=== PATIENT | female | born 1950 | race Caucasian/White ===

== ENCOUNTER → 2017-07-19 | Outpatient (REF) | payer MEDICARE ==
[2017-07-19 12:32] LABS: MEAN CORPUSCULAR HGB CONC 31.3 g/dl (32.0-36.5); MEAN CORPUSCULAR VOLUME 86.5 fl (80.0-96.0); RED CELL DISTRIBUTION WIDTH 14.2 % (11.5-14.5)
[2017-07-19 13:03] LABS: ALBUMIN/GLOBULIN RATIO 1.14 (1.00-1.93); ALKALINE PHOSPHATASE 109 U/L (45-117); ALT/SGPT 24 U/L (12-78); ANION GAP 9 MEQ/L (8-16); AST/SGOT 14 U/L (15-37); BILIRUBIN,TOTAL 0.3 MG/DL (0.2-1.0); BLOOD UREA NITROGEN 18 MG/DL (7-18); CALCIUM LEVEL 10.3 MG/DL (8.8-10.2); CARBON DIOXIDE LEVEL 30 MEQ/L (21-32); CHLORIDE LEVEL 103 MEQ/L (98-107); CREATININE FOR GFR 0.73 MG/DL (0.55-1.02); GLOMERULAR FILTRATION RATE > 60.0 (>45); GLUCOSE, FASTING 95 MG/DL (80-110); SODIUM LEVEL 142 MEQ/L (136-145); TOTAL PROTEIN 7.5 GM/DL (6.4-8.2)
[2017-07-19 13:08] LABS: POTASSIUM SERUM 5.3 MEQ/L (3.5-5.1)
== END ==
LOC: M SFHCADAM 09:26
PROVIDERS: ATTEND Physician Assistant
DX: R07.89 Other chest pain (principal); R00.2 Palpitations; F41.9 Anxiety disorder, unspecified
CPT/HCPCS: 80053; 84439; 84443; 85027; 93005; G0463

== ENCOUNTER → 2017-11-04 | Outpatient (CLI) | payer MEDICARE | LOC: M WHC 10:38 | DX: Z12.31 Encounter for screening mammogram for malignant neoplasm of breast (principal); Z78.0 Asymptomatic menopausal state; Z92.0 Personal history of contraception | CPT/HCPCS: G0202 ==

== ENCOUNTER → 2017-11-11 | Outpatient (REF) | payer MEDICARE ==
[2017-11-11 12:35] LABS: ALBUMIN 3.7 GM/DL (3.2-5.2); ALBUMIN/GLOBULIN RATIO 1.03 (1.00-1.93); ALKALINE PHOSPHATASE 114 U/L (45-117); ALT/SGPT 20 U/L (12-78); ANION GAP 4 MEQ/L (8-16); AST/SGOT 18 U/L (7-37); BILIRUBIN,TOTAL 0.4 MG/DL (0.2-1.0); BLOOD UREA NITROGEN 25 MG/DL (7-18); CALCIUM LEVEL 9.4 MG/DL (8.8-10.2); CARBON DIOXIDE LEVEL 31 MEQ/L (21-32); CHLORIDE LEVEL 104 MEQ/L (98-107); CREATININE FOR GFR 0.68 MG/DL (0.55-1.02); GLOMERULAR FILTRATION RATE > 60.0 (>45); GLUCOSE, FASTING 107 MG/DL (80-110); POTASSIUM SERUM 4.3 MEQ/L (3.5-5.1); SODIUM LEVEL 139 MEQ/L (136-145); TOTAL PROTEIN 7.3 GM/DL (6.4-8.2)
== END ==
LOC: M SFHCADAM 09:46
DX: E83.52 Hypercalcemia (principal); Z23 Encounter for immunization
CPT/HCPCS: 80053

== ENCOUNTER → 2018-04-06 | Outpatient (REF) | payer MEDICARE, OTHER ==
[2018-04-09 00:06] LABS: Lyme Disease IgG/IgM Antibodie <0.91 ISR (0.00-0.90); Lyme Disease IgM Ab Quantitati <0.80 index (0.00-0.79)
== END ==
LOC: M SFHCADAM 16:22
DX: R21 Rash and other nonspecific skin eruption (principal)
CPT/HCPCS: 86617

== ENCOUNTER → 2018-11-21 | Outpatient (REF) | payer MEDICARE ==
[2018-11-21 12:48] LABS: HEMATOCRIT 40.2 % (36.0-47.0); HEMOGLOBIN 12.6 g/dl (12.0-15.5); MEAN CORPUSCULAR HEMOGLOBIN 26.7 pg (27.0-33.0); MEAN CORPUSCULAR HGB CONC 31.3 g/dl (32.0-36.5); MEAN CORPUSCULAR VOLUME 85.2 fl (80.0-96.0); PLATELET COUNT, AUTOMATED 355 10^3/uL (150-450); RED BLOOD COUNT 4.72 10^6/uL (4.00-5.40); WHITE BLOOD COUNT 8.3 10^3/uL (4.0-10.0)
[2018-11-21 13:02] LABS: CHOLESTEROL RISK RATIO 3.214 (<5); FREE T4 1.06 NG/DL (0.76-1.46); THYROID STIMULATING HORMONE 0.324 uIU/ML (0.358-3.740)
[2018-11-21 14:03] LABS: TOTAL 25(OH) VITAMIN D 24.8 NG/ML (30.0-100.0)
== END ==
LOC: M SFHCADAM 09:11
PROVIDERS: ATTEND Physician Assistant
DX: E78.5 Hyperlipidemia, unspecified (principal); K21.9 Gastro-esophageal reflux disease without esophagitis; F41.9 Anxiety disorder, unspecified; F32.9 Major depressive disorder, single episode, unspecified
CPT/HCPCS: 80061; 82306; 84439; 84443; 85027; G0463

== ENCOUNTER → 2018-12-29 | Outpatient (CLI) | payer MEDICARE ==
--- NOTE | 2018-12-29 12:02 | REPMRS ---
Patient History The patient states she had a clinical breast exam in 12/26 No known family history of cancer. Took hormonal contraceptives for 3 years. Digital Woman Screen Mammo: December 29, 2018 - Exam #: [id number] Bilateral CC and MLO view(s) were taken. Technologist: Anum Shultz, Technologist Prior study comparison: November 04, 2017, digital woman screen mammo performed at [facility]. October 25, 2016, digital woman screen mammo performed at [facility]. FINDINGS: There are scattered fibroglandular densities. There has been no change in the appearance of the mammogram from the prior studies. There is a mild amount of residual fibroglandular tissue which is fairly symmetric. There is no interval development of dominant mass, architectural distortion, or clustered microcalcification suggestive of malignancy. Scattered lymph nodes are seen in the axillae. Skin mole in upper outer quadrant of the right breast. 3-D tomosynthesis shows no additional findings. The patient's Tyrer-Cuzick lifetime risk assessment score is 6.5 %. No significant changes when compared with prior studies. Assessment: BI-RADS/ACR category 2 mammogram. Benign Findings. Recommendation Routine screening mammogram in 1 year (for women over age 40). This mammogram was interpreted with the aid of an FDA-approved computer-aided dectection system. A. Negative x-ray reports should not delay biopsy if a dominant or clinically suspicious mass is present. B. Four to eight percent of cancers are not identified by mammography. C. Adenosis and dense breast may obscure an underlying neoplasm. Electronically Signed By: Doni Barrett MD 12/29/18 [id number]
== END ==
LOC: M WHC 10:37
PROVIDERS: ATTEND Nurse Practitioner Family
DX: Z12.31 Encounter for screening mammogram for malignant neoplasm of breast (principal); D23.5 Other benign neoplasm of skin of trunk; Z92.0 Personal history of contraception

== ENCOUNTER → 2018-12-29 | Outpatient (REF) | payer MEDICARE | LOC: M SFHCWAGY 11:10 | PROVIDERS: ATTEND Nurse Practitioner Family | DX: Z12.4 Encounter for screening for malignant neoplasm of cervix (principal) ==

== ENCOUNTER → 2019-03-20 | Outpatient (REF) | payer MEDICARE ==
[2019-03-20 20:38] LABS: BASO # 0.1 10^3/uL (0.0-0.2); EOS # 0.3 10^3/uL (0.0-0.50); EOS % 3.4 % (0.0-3.0); HEMATOCRIT 42.2 % (36.0-47.0); HEMOGLOBIN 13.2 g/dl (12.0-15.5); LYMPH # 2.6 10^3/uL (1.5-4.5); LYMPH % 25.8 % (24.0-44.0); MEAN CORPUSCULAR HEMOGLOBIN 27.6 pg (27.0-33.0); MEAN CORPUSCULAR HGB CONC 31.3 g/dl (32.0-36.5); MEAN CORPUSCULAR VOLUME 88.1 fl (80.0-96.0); MONO # 0.6 10^3/uL (0.0-0.8); MONO % 6.4 % (0.0-5.0); NEUTROPHILS # 6.3 10^3/uL (1.8-7.7); NEUTROPHILS % 63.1 % (36.0-66.0); PLATELET COUNT, AUTOMATED 366 10^3/uL (150-450); RED BLOOD COUNT 4.79 10^6/uL (4.00-5.40); WHITE BLOOD COUNT 9.9 10^3/uL (4.0-10.0)
[2019-03-20 20:42] LABS: ALBUMIN 3.6 GM/DL (3.2-5.2); ALT/SGPT 22 U/L (12-78); BILIRUBIN,TOTAL 0.2 MG/DL (0.2-1.0); BLOOD UREA NITROGEN 20 MG/DL (7-18); C REACTIVE PROTEIN QUANTITATIV 0.48 MG/DL (0.00-0.30); CALCIUM LEVEL 9.2 MG/DL (8.8-10.2); CARBON DIOXIDE LEVEL 30 MEQ/L (21-32); CHLORIDE LEVEL 104 MEQ/L (98-107); FREE T4 1.02 NG/DL (0.76-1.46); GLOMERULAR FILTRATION RATE > 60.0 (>45); GLUCOSE, FASTING 102 MG/DL (70-100); MONO REFLEX EBV COMP NEGATIVE (NEGATIVE); POTASSIUM SERUM 4.3 MEQ/L (3.5-5.1); SODIUM LEVEL 138 MEQ/L (136-145); THYROID STIMULATING HORMONE 0.518 uIU/ML (0.358-3.740); TOTAL PROTEIN 7.4 GM/DL (6.4-8.2)
[2019-03-20 21:51] LABS: ERYTHROCYTE SEDIMENTATION RATE 8 mm/hr (0-30)
[2019-03-23 00:06] LABS: EBV VIRAL CAPSID AG IgM <36.0 U/mL (0.0-35.9); Lyme Disease IgG/IgM Antibodie <0.91 ISR (0.00-0.90); Lyme Disease IgM Ab Quantitati <0.80 index (0.00-0.79)
== END ==
LOC: M LAB REF 20:03
PROVIDERS: ATTEND Physician Assistant Medical
DX: M79.10 Myalgia, unspecified site (principal); Z79.899 Other long term (current) drug therapy

== ENCOUNTER → 2019-03-28 | Outpatient (REF) | payer MEDICARE ==
[2019-03-28 20:08] LABS: C REACTIVE PROTEIN QUANTITATIV 0.69 MG/DL (0.00-0.30); CPK CREATINE PHOSPHOKINASE 72 U/L (26-192); RHEUMATOID FACTOR QUANT < 10.0 IU/ML (<15.0)
[2019-03-28 20:16] LABS: TOTAL 25(OH) VITAMIN D 23.9 NG/ML (30.0-100.0)
== END ==
LOC: M SFHCADAM 13:26
PROVIDERS: ATTEND Physician Assistant
DX: M25.50 Pain in unspecified joint (principal)

== ENCOUNTER → 2019-04-11 | Outpatient (CLI) | payer MEDICARE ==
--- NOTE | 2019-04-11 19:18 | REP ---
PELVIS AND BILATERAL HIPS: AP view of the pelvis and AP and frogleg views of the bilateral hips performed. There is no fracture or dislocation. There is mild degenerative change of the visualized lower lumbar spine. There is mild narrowing and subchondral sclerosis at the sacroiliac joints bilaterally. There is moderate arthritic change at both hip joints, with moderate joint space narrowing, subchondral sclerosis and spurring. These arthritic changes are somewhat greater on the left than on the right. IMPRESSION: Arthritic changes as above. Unreviewed
== END ==
LOC: M ADAMS 09:21
PROVIDERS: ATTEND Physician Assistant
DX: M17.0 Bilateral primary osteoarthritis of knee (principal); M25.552 Pain in left hip; M25.551 Pain in right hip

== ENCOUNTER → 2019-04-11 | Outpatient (REF) | payer MEDICARE ==
[2019-04-13 00:08] LABS: Lyme Disease IgG/IgM Antibodie <0.91 ISR (0.00-0.90); Lyme Disease IgM Ab Quantitati <0.80 index (0.00-0.79)
== END ==
LOC: M SFHCADAM 09:05
PROVIDERS: ATTEND Physician Assistant
DX: M25.551 Pain in right hip (principal)

== ENCOUNTER → 2019-08-15 | Outpatient (CLI) | payer MEDICARE ==
--- NOTE | 2019-08-22 16:46 | REP ---
Seven views lumbar spine: 08/15/2019. Indication: Low back pain. Comparison: None. Findings: There is no evidence of fracture, subluxation or dislocation. There is no evidence of instability. Degenerative changes are present most pronounced at L5/S1. No destructive osseous lesions are detected. Impression: Degenerative sequelae most pronounced at L5/S1 with significant narrowing of the disc space. Electronically Signed by Sergio Clark DO 08/22/2019 04:37 P
== END ==
LOC: M ADAMS 16:43
PROVIDERS: ATTEND Internal Medicine Rheumatology
DX: M51.37 Other intervertebral disc degeneration, lumbosacral region (principal); M54.5 Low back pain

== ENCOUNTER 2019-11-09 11:05 | Emergency (ER) | payer MEDICARE ==
[~2019-11-09] VITALS: Ht 167.6 cm; Wt 97.8 kg
[2019-11-09] MEDS ORDERED: OXYB5TAB10 (11:12)
[2019-11-09] MEDS ORDERED: SERT50TA29 (11:12)
[2019-11-09] MEDS ORDERED: CELE1CAP9 (11:12)
[2019-11-09 13:01] LABS: BASO # 0.1 10^3/uL (0.0-0.2); BASO % 0.9 % (0.0-1.0); EOS # 0.4 10^3/uL (0.0-0.5); EOS % 3.7 % (0.0-3.0); HEMATOCRIT 40.3 % (36.0-47.0); HEMOGLOBIN 12.7 g/dl (12.0-15.5); LYMPH # 2.7 10^3/uL (1.5-5.0); LYMPH % 25.8 % (24.0-44.0); MEAN CORPUSCULAR HGB CONC 31.5 g/dl (32.0-36.5); MEAN CORPUSCULAR VOLUME 85.6 fl (80.0-96.0); MONO # 0.8 10^3/uL (0.0-0.8); MONO % 7.9 % (0.0-5.0); NEUTROPHILS # 6.3 10^3/uL (1.5-8.5); NEUTROPHILS % 61.5 % (36.0-66.0); PLATELET COUNT, AUTOMATED 332 10^3/uL (150-450); RED BLOOD COUNT 4.71 10^6/uL (4.00-5.40); WHITE BLOOD COUNT 10.3 10^3/uL (4.0-10.0)
[2019-11-09 13:26] LABS: BLOOD UREA NITROGEN 17 MG/DL (7-18); CALCIUM LEVEL 9.5 MG/DL (8.8-10.2); CARBON DIOXIDE LEVEL 29 MEQ/L (21-32); CHLORIDE LEVEL 106 MEQ/L (98-107); CREATININE FOR GFR 0.71 MG/DL (0.55-1.30); GLOMERULAR FILTRATION RATE > 60.0 (>45); GLUCOSE, FASTING 97 MG/DL (70-100); POTASSIUM SERUM 4.5 MEQ/L (3.5-5.1); SODIUM LEVEL 138 MEQ/L (136-145)
[2019-11-09 13:27] LABS: ERYTHROCYTE SEDIMENTATION RATE 16 mm/hr (0-30)
--- NOTE | 2019-11-09 15:24 | REP ---
Duplex extremity venous ultrasound: Left lower extremity. History: Left lower extremity edema and warmth. Rule out DVT. Findings: The deep veins are anechoic and fully compressible from the groin to the popliteal fossa in the left lower extremity. Color flow imaging is homogeneous. Spectral Doppler interrogation demonstrates intact respiratory variation in flow and normal manual augmentation of flow. There is no evidence of deep vein thrombosis. Impression: Negative left lower extremity duplex venous ultrasound. No evidence of deep vein thrombosis. Electronically Signed by Kendell Tejada MD 11/09/2019 03:15 P
[2019-11-09 15:29] VITALS: BP 123/56
[2019-11-09] MEDS ORDERED: KEFL500C17 PO (15:36)
== END 2019-11-09 15:51 | disposition home or self-care (01) ==
LOC: M ED 11:05
DX: I80.02 Phlebitis and thrombophlebitis of superficial vessels of left lower extremity (principal); I83.93 Asymptomatic varicose veins of bilateral lower extremities; Z78.0 Asymptomatic menopausal state; Z79.899 Other long term (current) drug therapy

== ENCOUNTER → 2019-11-16 | Outpatient (REF) | payer MEDICARE ==
[~2019-11-16] MED LIST: CELE1CAP9; KEFL500C17 PO; OXYB5TAB10; SERT50TA29
[2019-11-16 14:00] LABS: CHOLESTEROL RISK RATIO 3.24 (<5)
== END ==
LOC: M SFHCADAM 10:54
PROVIDERS: ATTEND Physician Assistant
DX: I83.892 Varicose veins of left lower extremity with other complications (principal); E78.5 Hyperlipidemia, unspecified; E55.9 Vitamin D deficiency, unspecified

== ENCOUNTER → 2019-11-27 | Outpatient (CLI) | payer MEDICARE ==
--- NOTE | 2019-11-27 13:18 | REP ---
Bilateral lower extremity duplex venous ultrasound: History: Thrombophlebitis of the superficial vessels of the lower extremity. Comparison study is from November 09, 2019. Sonographic findings: The deep veins are anechoic and fully compressible from the groin to the popliteal fossa in both lower extremities on two-dimensional scanning. Color flow and spectral Doppler interrogation are unremarkable in the deep veins bilaterally. There is no evidence of DVT on either side. There is however extensive occlusive thrombosis of the left greater saphenous vein from the proximal thigh to the proximal calf. There is partial thrombosis in the anterior accessory greater saphenous vein on the left as well. Impression: This study is positive for superficial vein thrombophlebitis with occlusive thrombus of the greater saphenous vein on the left and partial thrombus in the anterior accessory greater saphenous vein on the left. Otherwise negative. There is no evidence of deep vein thrombosis on either side. Electronically Signed by Kendell Tejada MD 11/27/2019 02:39 P
== END ==
LOC: M RAD 09:29
PROVIDERS: ATTEND Surgery
DX: I80.03 Phlebitis and thrombophlebitis of superficial vessels of lower extremities, bilateral (principal)

== ENCOUNTER → 2020-01-07 | Outpatient (CLI) | payer MEDICARE ==
--- NOTE | 2020-01-07 10:13 | REPMRS ---
Patient History The patient states she had a clinical breast exam in 12/2019. No known family history of cancer. Took hormonal contraceptives for 3 years. Digital Woman Screen Mammo: January 07, 2020 - Exam #: [id number] Bilateral CC and MLO view(s) were taken. Technologist: Rossy Funes, Technologist Prior study comparison: December 29, 2018, bilateral digital woman screen mammo performed at [facility]. November 04, 2017, digital woman screen mammo performed at [facility]. October 25, 2016, digital woman screen mammo performed at [facility]. FINDINGS: There are scattered fibroglandular densities. There has been no change in the appearance of the mammogram from the prior studies. There is a mild amount of scattered fibroglandular density which is fairly symmetric. There is no interval development of dominant mass, architectural distortion, or grouped microcalcification suggestive of malignancy. 3-D tomosynthesis shows no additional findings. Assessment: BI-RADS/ACR category 1 mammogram. Negative Mammogram. Recommendation Routine screening mammogram of both breasts in 1 year (for women over age 40). This patient's Lifetime Breast Cancer Risk is estimated at 6.1 %. This mammogram was interpreted with the aid of an FDA-approved computer-aided dectection system. Electronically Signed By: Dane Tejada MD 01/07/20 [id number]
== END ==
LOC: M WHC 09:26
PROVIDERS: ATTEND Nurse Practitioner Family
DX: Z12.31 Encounter for screening mammogram for malignant neoplasm of breast (principal); Z92.0 Personal history of contraception

== ENCOUNTER → 2020-06-03 | Outpatient (CLI) | payer MEDICARE ==
--- NOTE | 2020-07-25 07:18 | REP ---
BILATERAL DUPLEX VENOUS ULTRASOUND: HISTORY: Follow up DVT. Varicose veins. COMPARISON: None. FINDINGS: The deep veins are anechoic and fully compressible from the groin to the popliteal fossa in both lower extremities on two dimensional scanning. Color flow imaging is homogeneous. Spectral Doppler interrogation demonstrates intact respiratory variation in flow and normal manual augmentation of flow. There is no evidence of deep vein thrombosis. IMPRESSION: Negative bilateral lower extremity duplex venous ultrasound. No evidence of deep vein thrombosis. MTDD
== END ==
LOC: M RAD 11:10
PROVIDERS: ATTEND Physician Assistant
DX: I83.813 Varicose veins of bilateral lower extremities with pain (principal); I80.02 Phlebitis and thrombophlebitis of superficial vessels of left lower extremity

== ENCOUNTER → 2021-01-07 | Outpatient (CLI) | payer MEDICARE ==
--- NOTE | 2021-01-07 15:58 | DEXAMM ---
INDICATION: Z13.820 OSTEOPOROSIS. COMPARISON: 10/27/2016, [id number]. TECHNIQUE: Bone density was measured using dual-energy x-ray absorptiometry (DEXA). FINDINGS: AP SPINE L1-L4 BMD 1.321 g/cm2 Young Adult T-Score 1.0 Age Matched Z-Score 2.7. LT FEMUR, TOTAL BMD 1.099 g/cm2 Young Adult T-Score 0.7 Age Matched Z-Score 2.2. LT NECK BMD 1.099 g/cm2 Young Adult T-Score 0.4 Age Matched Z-Score 2.1. RT FEMUR, TOTAL BMD 1.083 g/cm2 Young Adult T-Score 0.6 Age Matched Z-Score 2.0. RT NECK BMD 1.023 g/cm2 Young Adult T-Score -0.1 Age Matched Z-Score 1.6. IMPRESSION: There is normal bone density of the spine. There is normal bone density of the left hip. There is normal bone density of the right hip. The density of the spine has decreased 7.2% since the initial exam on 03/19/2011. The density of the spine decreased 4.6% since most recent exam on 10/27/2016. The density of the left hip has decreased 3.6% since initial exam on 03/19/2011. The density of the left hip has decreased 3.1% since most recent exam on 10/27/2016. The density of the right hip has decreased 6.9% since the initial exam on 03/19/2011. The density of the right hip has decreased 3.5% since the most recent exam on 10/27/2016. FOLLOW-UP: Recommendation for the next bone density exam: 5 years. <Electronically signed by Emigdio Pascual > 01/07/21 [id number]
== END ==
LOC: M WHC 10:29
PROVIDERS: ATTEND Physician Assistant
DX: Z13.820 Encounter for screening for osteoporosis (principal); Z78.0 Asymptomatic menopausal state

== ENCOUNTER → 2021-01-07 | Outpatient (CLI) | payer MEDICARE ==
--- NOTE | 2021-01-07 11:50 | REPMRS ---
Patient History The patient states she had a clinical breast exam in 01/2021 No known family history of cancer. Took hormonal contraceptives for 3 years. 3D TOMOSYNTHESIS WAS PERFORMED. The Faith Molina lifetime risk for breast cancer is 5.8%. Volpara breast density a. Digital Woman Screen Mammo: January 07, 2021 - Exam #: [id number] Bilateral CC and MLO view(s) were taken. Technologist: Anum Shultz, Technologist Prior study comparison: January 07, 2020, bilateral digital woman screen mammo performed at [facility]. December 29, 2018, bilateral digital woman screen mammo performed at [facility]. FINDINGS: There are scattered fibroglandular densities. There has been no change in the appearance of the mammogram from the prior studies. There is a mild amount of residual fibroglandular tissue which is fairly symmetric. There is no interval development of dominant mass, architectural distortion, or clustered microcalcification suggestive of malignancy. Assessment: BI-RADS/ACR category 1 mammogram. Negative Mammogram. Recommendation Routine screening mammogram in 1 year (for women over age 40). This mammogram was interpreted with the aid of an FDA-approved computer-aided dectection system. Electronically Signed By: Emigdio Pascual MD 01/07/21 [id number]
== END ==
LOC: M WHC 09:40
PROVIDERS: ATTEND Nurse Practitioner Family
DX: Z12.31 Encounter for screening mammogram for malignant neoplasm of breast (principal); Z92.0 Personal history of contraception